=== PATIENT | male | born 1955 | race Caucasian/White ===

== ENCOUNTER → 2016-10-31 | Outpatient (CLI) | payer BC ==
[~2016-10-31] MED LIST: GABA-113 PO; MULT-506 PO; PRLSR20 PO
[2016-10-31 13:18] LABS: BASO % 0.7 %; BASO ABS # 0.04 K/uL (0-0.2); COMPLETE YES; EOS % 6.9 %; HEMATOCRIT 39.3 % (42-52); IG% 0.2 %; LYMPH % 25.9 %; LYMPH ABS # 1.54 K/uL (1.2-3.4); MEAN CELL VOLUME 94.9 fL (80-100); MEAN CORPUSCULAR HEMOGLOBIN 30.9 pg (25-34); MEAN CORPUSCULAR HGB CONC 32.6 g/dl (32-36); MEAN PLATELET VOLUME 11.6 fL (7.4-10.4); MONO % 8.7 %; NEUT % 57.6 %; PLATELET COUNT 210 K/uL (130-400); RED BLOOD COUNT 4.14 M/uL (4.7-6.1); WHITE BLOOD COUNT 5.95 K/uL (4.8-10.8)
[2016-10-31 13:25] LABS: ALT/SGPT 28 U/L (12-78); BLOOD UREA NITROGEN 17 mg/dl (7-18); CARBON DIOXIDE 30 mmol/L (21-32); CHLORIDE 105 mmol/L (98-107); CHOLESTEROL 194 mg/dl (0-200); GLUCOSE 99 mg/dl (70-99); POTASSIUM 4.4 mmol/L (3.5-5.1); SODIUM 141 mmol/L (136-145); TRIGLYCERIDES 92 mg/dl (0-150); VERY LOW DENSITY LIPOPROT CALC 18 mg/dl
[2016-10-31 13:28] LABS: ALB/GLOB RATIO 1.1 (0.9-2); ALKALINE PHOSPHATASE 52 U/L (45-117); AST/SGOT 29 U/L (15-37); HDL CHOLESTEROL 48 mg/dl; LDL CHOLESTEROL CALCULATED 128 mg/dl
[2016-10-31 13:41] LABS: ESTIMATED AVERAGE GLUCOSE 105 mg/dl; HA1C FLAG Normal (Normal)
[2016-10-31 13:42] LABS: CALCIUM 9.7 mg/dl (8.5-10.1)
== END | disposition home or self-care (01) ==
LOC: C.LABBFT 07:31
PROVIDERS: ATTEND Internal Medicine
DX: D64.9 Anemia, unspecified (principal); R74.0 Nonspecific elevation of levels of transaminase and lactic acid dehydrogenase [LDH]; R73.9 Hyperglycemia, unspecified

== ENCOUNTER → 2017-11-17 | Outpatient (CLI) | payer BC ==
[2017-11-17 13:20] LABS: BASO % 0.3 %; BASO ABS # 0.02 K/uL (0-0.2); EOS % 5.1 %; EOS ABS # 0.29 K/uL (0-0.5); HEMATOCRIT 37.2 % (42-52); HEMOGLOBIN 12.4 g/dL (14.0-18.0); IG# 0.02 K/uL (0.00-0.02); LYMPH % 24.7 %; LYMPH ABS # 1.42 K/uL (1.2-3.4); MEAN CELL VOLUME 93.5 fL (80-100); MEAN CORPUSCULAR HEMOGLOBIN 31.2 pg (25-34); MEAN CORPUSCULAR HGB CONC 33.3 g/dl (32-36); MEAN PLATELET VOLUME 10.6 fL (7.4-10.4); MONO % 9.1 %; MONO ABS # 0.52 K/uL (0.11-0.59); NEUT % 60.5 %; NEUT ABS # 3.47 K/uL (1.4-6.5); PLATELET COUNT 221 K/uL (130-400); RED CELL DISTRIBUTION WIDTH CV 13.2 % (11.5-14.5); RED CELL DISTRIBUTION WIDTH SD 45.1 fL (36.4-46.3); WHITE BLOOD COUNT 5.74 K/uL (4.8-10.8)
[2017-11-17 15:22] LABS: ALBUMIN 3.6 gm/dl (3.4-5.0); ALKALINE PHOSPHATASE 49 U/L (45-117); ALT/SGPT 26 U/L (12-78); AST/SGOT 32 U/L (15-37); BLOOD UREA NITROGEN 18 mg/dl (7-18); CALCIUM 9.3 mg/dl (8.5-10.1); CARBON DIOXIDE 30 mmol/L (21-32); CHOLESTEROL 206 mg/dl (0-200); CREATININE 1.29 mg/dl (0.60-1.40); GLUCOSE 96 mg/dl (70-99); LDL CHOLESTEROL CALCULATED 135 mg/dl; POTASSIUM 4.2 mmol/L (3.5-5.1); SODIUM 139 mmol/L (136-145); TOTAL PROTEIN 7.6 gm/dl (6.4-8.2)
[2017-11-18 05:51] LABS: HEMOGLOBIN A1C 5.4 % (4.5-5.6)
== END | disposition home or self-care (01) ==
LOC: C.LABBFT 07:39
PROVIDERS: ATTEND Physician Assistant Medical
DX: D64.9 Anemia, unspecified (principal); R73.9 Hyperglycemia, unspecified; Z12.5 Encounter for screening for malignant neoplasm of prostate; R74.0 Nonspecific elevation of levels of transaminase and lactic acid dehydrogenase [LDH]

== ENCOUNTER 2025-06-11 11:11 | Inpatient (IN) ==
--- NOTE | 2025-06-11 11:31 | Emergency Department Note ---
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 The patient states he did have a fall in March but he was feeling better after that fall and presents emerged ferment today because when he was sitting up in his chair he felt a pop in his anterior chest wall. He said pain over his sternum ever since that time. The patient denies having any fevers. The patient denies having any coughing. He states the pain does worsen when he takes a deep breath. The patient has not noticed any swelling in his left leg. ROS: See above HPI for pertinent positives & negatives. A total of 10 systems reviewed and were otherwise negative. PAST MEDICAL HISTORY: See Below PAST SURGICAL HISTORY: See Below FAMILY HISTORY: See Below SOCIAL HISTORY: See Below HOME MEDICATIONS: See Below ALLERGIES: See Below VITALS: See Below PHYSICAL EXAMINATION: GENERAL: The patient is awake and alert. He does appear to uncomfortable. EYES: The conjunctivae are clear. The pupils are round and reactive. EARS, NOSE, MOUTH AND THROAT: The nose is without any evidence of any deformity. NECK: The neck is nontender and supple. RESPIRATORY: Normal respiratory effort is noted there is no evidence of wheezing rhonchi or rales CARDIOVASCULAR: Regular rate and rhythm noted there no murmurs rubs or gallops normal S1 normal S2. GASTROINTESTINAL: The abdomen is soft. Abdomen is nontender. MUSCULOSKELETAL/EXTREMITIES: Right lower extremity amputation noted. There is tenderness over the anterior chest wall over the sternum. There is no crepitus. SKIN: There is no obvious evidence of any rash. There are no petechiae, pallor or cyanosis noted. NEUROLOGIC: Patient is awake alert and oriented x3 MEDICAL DECISION MAKING: The patient is a 70-year-old male who presented to the emergency department for chest pain. The patient had reproducible chest pain that occurred when he was sitting up out of his chair. This occurred a few days ago. His pain was significant. He also had recently been diagnosed with compression fractures in his thoracic spine. The patient was found to be hypoxic. He was placed on supplemental oxygen. He was treated with IV fluids. I discussed the patient's laboratory and radiographic studies with him. He was also treated with IV pain medication. The patient was found to have multiple areas of lytic lesions in his axial and skeletal bones which could be consistent with a metastatic process. He was also found to be anemic with hypercalcemia. This could also represent multiple myeloma. SPEP was ordered but is a send out from our facility. I discussed the patient's condition with him. He was feeling much better after treatment with IV pain medication but given his vital signs I do feel that he would be a better candidate for inpatient management. For this reason I discussed his condition with the on-call [facility] hospitalist. They have agreed to evaluate the patient in the emergency department for further management and disposition. Triage Nursing notes reviewed. Prior medical records reviewed Vital Signs: reviewed and remarkable for tachycardia and hypoxia. Differential diagnosis: Cardiac ischemia, aortic dissection, pulmonary embolism, pneumothorax, pneumonia, pericarditis, myocarditis, esophageal rupture, GERD, cholecystitis, pancreatitis, musculoskeletal, as well as other pathologies. ER treatment provided: See below Diagnostics interpreted by me: ECG: EKG was obtained in the emergency department. My interpretation is sinus tachycardia at 115 bpm. There is no ectopy. There is no acute ST segment abnormalities noted. This was compared to a tracing from December 01, 2000. No specific changes were noted. Cardiac Monitoring: An order was placed for continuous cardiac monitoring. The monitor shows a rate of 117 bpm with sinus tachycardia. Laboratory studies: As stated above and show below. Imaging studies: See below. Radiographic imaging was reviewed by myself Consultation(s): I discussed this case with Dr. Amaral who is on-call for the [facility]. 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 Dysrhythmia Hyperglycemia Male erectile disorder of organic origin Paresthesias Sensorineural hearing loss (SNHL) of left ear with unrestricted hearing of right ear History of colon polyps Health maintenance examination Leukopenia Castrejon's esophagus Gastroesophageal reflux disease Hyperlipidemia Left knee DJD Stump neuralgia Medical History Anemia History of osteosarcoma RLE; 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 Beliefs That Will Affect Care: None marital status: Current Living Situation: Spouse current occupational status: retired current occupation: [employer] Feels Safe at Home: Yes Safety Concerns: Feels Safe At This Time Childhood Exposure to Second-Hand Smoke: No Diet: regular caffeine: Yes Dental Care, Regularly: Yes Physical Activity Frequency: Daily Seatbelt Use: always Sunscreen Use: Yes Assistive Devices: Crutches, Glasses and Prosthesis Allergies Allergies Allergy/AdvReac Type Severity Reaction Status Date / Time No Known Drug Allergies Allergy Verified 05/12/25 13:39 Home Meds Home Medications Medication Instructions Recorded Confirmed amitriptyline 10 mg tablet 10 mg PO DAILY 06/11/25 06/11/25 amitriptyline 25 mg tablet 25 mg PO HS Stump pain 06/11/25 06/11/25 Previous Rx's Medication Instructions Recorded miscellaneous medical supply #1 ea 03/12/24 atorvastatin 40 mg tablet 40 mg PO HS #90 tabs 07/05/24 pantoprazole 40 mg tablet,delayed 40 mg PO QAM #90 tabs 08/24/24 release duloxetine 30 mg capsule,delayed 30 mg PO DAILY #30 caps 04/01/25 release pregabalin 150 mg capsule (Lyrica) 150 mg PO TID #90 caps 05/13/25 diclofenac sodium 75 mg 75 mg PO BID #60 tabs 06/08/25 tablet,delayed release tramadol 50 mg tablet 50 mg PO Q8H PRN pain #30 tabs 06/08/25 Results & Data (ED) Vital Signs Vital Signs - 24 hr 06/11/25 11:13 06/11/25 11:23 06/11/25 11:23 Temperature 37.0 C Temperature Source Temporal Artery Scan Pulse Rate 111 H 103 H Respiratory Rate 18 Respiratory Effort / Characteristics Non-Labored Respiratory Depth Normal Respiratory Pattern Regular Pulse Oximetry 96 88 L 96 Oxygen Delivery Method Room Air Room Air Room Air Sepsis Recent Fever Within 48 Hours No Sepsis New/Unexplained Change in Mental Status No Sepsis Action Taken by Nursing No Action Required Oxygen Flow Rate - Titration 2 Pulse Oximetry Post Tiitration 96 06/11/25 11:59 Temperature Temperature Source Pulse Rate 111 H Respiratory Rate Respiratory Effort / Characteristics Respiratory Depth Respiratory Pattern Pulse Oximetry Oxygen Delivery Method Sepsis Recent Fever Within 48 Hours Sepsis New/Unexplained Change in Mental Status Sepsis Action Taken by Nursing Oxygen Flow Rate - Titration Pulse Oximetry Post Tiitration Home Medications Current Medication List: was personally reviewed by me Laboratory Data Attestation: I reviewed the patient's lab results. 06/12/25 05:31 06/12/25 05:31 Lab Results 06/11/25 06/11/25 Range/Units 11:30 11:57 WBC 4.50 L (4.8-10.8) K/ul RBC 2.98 L (4.70-6.10) M/uL Hgb 9.6 L (14.0-18.0) g/dL POC Hgb 9.9 L (14.0-18.0) g/dl Hct 29.0 L (42.0-52.0) % POC Hct 29 L (42-52) % MCV 97.3 (80.0-100.0) fL MCH 32.2 (25.0-34.0) pg MCHC 33.1 (32.0-36.0) g/dL RDW Std Deviation 51.1 H (36.4-46.3) fL RDW Coeff of Flo 14.5 (11.5-14.5) % Plt Count 253 (130-400) K/uL MPV 10.1 (9.4-12.4) fL Immature Gran % (Auto) 1.1 % Neut % (Auto) 57.3 % Lymph % (Auto) 26.9 % Blanco % (Auto) 11.6 % Eos % (Auto) 2.4 % Baso % (Auto) 0.7 % Neut # (Auto) 2.58 (1.40-6.50) K/uL Lymph # (Auto) 1.21 (1.20-3.40) K/uL Blanco # (Auto) 0.52 (0.11-0.59) K/uL Eos # (Auto) 0.11 (0.00-0.50) K/uL Baso # (Auto) 0.03 (0.00-0.20) K/uL Immature Gran # (Auto) 0.05 (0.01-0.20) K/uL POC Sodium 144 (135-144) mmol/L Sodium 137 (136-145) mmol/L POC Potassium 3.9 (3.3-5.0) mmol/L Potassium 3.6 (3.5-5.1) mmol/L POC Chloride 100 L (101-112) mmol/L Chloride 100 (98-107) mmol/L Carbon Dioxide 31 (21-32) mmol/L POC Total CO2 28 (24-31) mmol/L Anion Gap 6 (3-11) POC Anion Gap 20.0 (16-25) mmol/L POC BUN 31 H (7-18) mg/dl BUN 29 H (6-23) mg/dl Creatinine 1.25 (0.6-1.4) mg/dl POC Creatinine 1.3 (0.6-1.3) mg/dl Est Cr Clr Drug Dosing Not Reportable eGFR 62.72 BUN/Creatinine Ratio 23.2 H (10-20) Glucose 131 H (70-99(Fasting)) mg/dl POC Glucose (other) 120 H (70-99) mg/dl Calcium 11.3 H (8.6-10.3) mg/dl POC Ioniz Calcium Marianela 1.46 H (1.12-1.32) mmol/l Total Bilirubin 0.4 (0.2-1.0) mg/dl AST 27 (13-39) U/L ALT 19 (7-52) U/L Alkaline Phosphatase 97 (34-104) U/L Troponin I High Sens 11.3 (0-20) pg/ml Total Protein 10.7 H (6.0-8.3) gm/dl Albumin 3.8 (3.4-5.0) gm/dl Globulin 6.9 H (2.5-4.0) gm/dl Albumin/Globulin Ratio 0.6 L (0.9-2) Lipase 21 (11-82) U/L Administered Medications Acetaminophen (Acetaminophen 325 Mg Tab) 650 mg PO QID PARK Stop: 07/11/25 16:59 Last Admin: 06/11/25 22:08 Dose: 650 mg Documented By: alt Admin: 06/11/25 16:37 Dose: 650 mg Documented By: CA Atorvastatin Calcium (Atorvastatin 40 Mg Tab) 40 mg PO HS PARK Stop: 07/11/25 20:59 Last Admin: 06/11/25 22:05 Dose: 40 mg Documented By: alt Diclofenac Sodium (Diclofenac Sodium 75 Mg Tabcr) 75 mg PO BID PARK Stop: 07/11/25 20:59 Last Admin: 06/11/25 22:04 Dose: 75 mg Documented By: alt Hydromorphone HCl (Hydromorphone Inj 0.5 Mg/0.5 Ml Syr) 0.5 mg IV Q3H PRN PRN Reason: Pain Stop: 06/25/25 12:52 Last Admin: 06/12/25 03:16 Dose: 0.5 mg Documented By: alt Admin: 06/11/25 22:09 Dose: 0.5 mg Documented By: alt Admin: 06/11/25 16:37 Dose: 0.5 mg Documented By: CA Pregabalin (Pregabalin 150 Mg Cap) 150 mg PO TID PARK Stop: 07/11/25 13:59 Last Admin: 06/11/25 22:08 Dose: 150 mg Documented By: alt Admin: 06/11/25 16:37 Dose: 150 mg Documented By: CA Tramadol HCl (Tramadol Hcl 50 Mg Tablet) 50 mg PO Q8H PRN PRN Reason: pain Stop: 07/11/25 13:48 Last Admin: 06/11/25 23:06 Dose: 50 mg Documented By: alt Discontinued Medications Hydromorphone HCl (Hydromorphone Inj 0.5 Mg/0.5 Ml Syr) 0.5 mg IV Q15M PRN PRN Reason: Pain Stop: 06/25/25 12:52 Last Admin: 06/11/25 12:57 Dose: 0.5 mg Documented By: FERNANDO Sodium Chloride (Nss) 500 mls @ 999 mls/hr IV .Q31M ONE Stop: 06/11/25 13:43 Last Infusion: 06/11/25 14:57 Dose: Infused Documented By: Admin: 06/11/25 13:48 Dose: 999 mls/hr Documented By: FERNANDO Ioversol (Optiray 320 125ml) 119 ml IV ONCE ONE Stop: 06/11/25 12:25 Last Admin: 06/11/25 12:24 Dose: 119 ml Documented By: DEVIN Miscellaneous (Patient's Height &/Or Weight Needed) 1 each N/A Q2H STA Stop: 06/11/25 15:01 Last Admin: 06/11/25 16:37 Dose: 1 each Documented By: CISCO Morphine Sulfate (Morphine Sulfate 4 Mg/Ml 1 Ml Carp\Vial) 4 mg IV NOW STA Stop: 06/11/25 11:24 Last Admin: 06/11/25 11:35 Dose: 4 mg Documented By: EDWARD Ondansetron HCl (Ondansetron Inj 2 Mg/Ml 2 Ml Vial) 4 mg IV NOW STA Stop: 06/11/25 11:24 Last Admin: 06/11/25 11:35 Dose: 4 mg Documented By: EDWARD Imaging Data Attestation: I personally reviewed and interpreted this imaging study as follows: My Impression: 1 view chest x-ray was obtained in the emergency department. My interpretation is no free air or definite infiltrate, elevation of left hemidiaphragm was noted, final report below. Radiologist's Impression: Chest CTA 06/11/25 11:23 Clinical history: Chest pain and difficulty breathing Technique: Axial computed tomography images were obtained of the chest after the administration of intravenous contrast according to the CT angiogram protocol No prior CT is available for comparison Findings: There is no definite sign of pulmonary embolism. There is mild subsegmental atelectasis in both lower lobes. There is mild lingular atelectasis also. The lungs otherwise appear clear without infiltrate or mass. There is no pleural effusion or pneumothorax. There is no sign of pulmonary fibrosis or other diffuse interstitial process. No endobronchial lesion is seen There is no mediastinal, hilar, or axillary adenopathy. The thoracic aorta appears unremarkable with no sign of aneurysm or dissection. There is no pericardial effusion. There is a right chest wall port with its tip in the SVC There are T8 and T11 compression fractures, likely old but of indeterminate age. There are multiple lytic osseous lesions, likely due to metastatic disease. There is a mildly displaced fracture of the right anterior seventh rib that may be acute. There is a mildly displaced fracture of the upper body of the sternum, likely acute. Impression: 1. No definite sign of pulmonary embolism 2. Multiple lytic osseous lesions, likely due to metastatic disease. 3. Mild bilateral lung base atelectasis. 4. Fracture of the right anterior seventh rib that may be acute 5. Age-indeterminate fractures of the T8 and T11 vertebral bodies 6. Mildly displaced sternal fracture, likely acute ACT 112: Positive. There are findings on this exam that require communication between the performing entity and the patient following Patient Test Result Information Act ([place] ACT 112) guidelines. Electronically signed by Corona Madden 06-11-2025 12:57 PM Chest X-Ray 06/11/25 11:26 Clinical History: Chest pain Technique: A frontal view of the chest was obtained Findings: There are no definite focal pulmonary infiltrates. The heart size is within normal limits. No pleural effusion or pneumothorax is seen. There is suspected mild pulmonary vascular congestion No fracture is noted. There is a right subclavian central line with its tip in the SVC Impression: Mild pulmonary vascular congestion Electronically signed by Corona Madden 06-11-2025 12:05 PM Abdomen/Pelvis CT 06/11/25 12:01 Technique: Axial computed tomography images were obtained of the abdomen and pelvis after the administration of intravenous contrast. No prior CT is available for comparison. Findings: The liver is overall of normal size, attenuation, and contour with no sign of cirrhosis or significant fatty infiltration. No liver mass lesion is seen. The portal vein is patent. The gallbladder appears unremarkable. No bile duct dilatation is noted. The spleen is of normal size. No focal splenic lesion is evident. The pancreas appears normal with no sign of acute or chronic pancreatitis and no mass lesion noted. The pancreatic duct is of normal caliber. The adrenal glands appear unremarkable. No definite renal or proximal ureteral calculi are seen on this contrast-enhanced study. There is no hydronephrosis or perinephric stranding. No renal mass lesion is identified. The abdominal aorta is of normal caliber. No abdominal adenopathy is seen. The stomach appears normal. There is no sign of small bowel obstruction. There is mild sigmoid diverticulosis without evidence of diverticulitis. No free intraperitoneal fluid or air is identified. No distal ureteral or bladder calculi are seen. There is mild prominence of the bladder wall. No definite bladder mass lesion is evident. The iliac arteries are of normal caliber. No pelvic adenopathy is noted. There is a small right inguinal hernia containing fat There appear to be multiple small lytic osseous lesions. There are L1 and L2 compression fractures of indeterminate age Impression: 1. Mild diverticulosis without evidence of diverticulitis 2. Mild prominence of the wall of the urinary bladder. This appearance could be due to incomplete distention, though infectious cystitis or other pathology cannot be excluded. Correlation with urinalysis may be useful 3. Small right inguinal hernia containing only fat 4. Multiple small lytic osseous lesions, concerning for metastatic disease 5. L1 and L2 compression fractures of indeterminate age Electronically signed by Corona Madden 06-11-2025 13:03 PM Discharge Plan Visit Data Chief Complaint: Chest Pain Stated Complaint: CHEST PAIN, DIFFICULTY BREATHING, 3 FRACTURED VERT ED Provider: Addie Bhatti Discharge Problem: Sternal fracture, Anemia, Closed rib fracture, Compression fracture of thoracic vertebra, Hypoxia, Hypercalcemia, Compression fx, lumbar spine Patient Disposition: Admitted As Inpatient Condition: Fair Discharge Instructions Interventions: ED Discharge Assessment Last Done: 06/11/25 14:48
[2025-06-11] MEDS: MoRPHine SULFATE 4 MG/ML 1 ML CARP\\VIAL IV STA (11:35)
[2025-06-11] MEDS: ONDANSETRON INJ 2 MG/ML 2 ML VIAL IV STA (11:35)
[2025-06-11 12:02] LABS: Hematocrit (blood only) 29.0 % (42.0-52.0); Hemoglobin 9.6 g/dL (14.0-18.0); Immature Granulocytes # (auto) 0.05 K/uL (0.01-0.20); Immature Granulocytes % (auto) 1.1 %; Mean Corpuscular Hemoglobin 32.2 pg (25.0-34.0); Mean Corpuscular Volume 97.3 fL (80.0-100.0); Platelet Count 253 K/uL (130-400); RDW Standard Deviation 51.1 fL (36.4-46.3); Red Blood Count 2.98 M/uL (4.70-6.10); White Blood Count 4.50 K/ul (4.8-10.8)
--- NOTE | 2025-06-11 12:05 | XRay Report ---
Clinical History: Chest pain Technique: A frontal view of the chest was obtained Findings: There are no definite focal pulmonary infiltrates. The heart size is within normal limits. No pleural effusion or pneumothorax is seen. There is suspected mild pulmonary vascular congestion No fracture is noted. There is a right subclavian central line with its tip in the SVC Impression: Mild pulmonary vascular congestion Electronically signed by Corona Madden 06-11-2025 12:05 PM
[2025-06-11 12:19] LABS: Alanine Aminotransferase 19 U/L (7-52); Albumin Globulin Ratio 0.6 (0.9-2); Albumin Level 3.8 gm/dl (3.4-5.0); Alkaline Phosphatase 97 U/L (34-104); Anion Gap 6 (3-11); Bilirubin,Total 0.4 mg/dl (0.2-1.0); Blood Urea Nitrogen 29 mg/dl (6-23); Calcium 11.3 mg/dl (8.6-10.3); Carbon Dioxide 31 mmol/L (21-32); Chloride 100 mmol/L (98-107); Globulin 6.9 gm/dl (2.5-4.0); Glucose 131 mg/dl (70-99(Fasting)); Lipase 21 U/L (11-82); Potassium 3.6 mmol/L (3.5-5.1); Sodium 137 mmol/L (136-145); Total Protein 10.7 gm/dl (6.0-8.3)
[2025-06-11] MEDS: OPTIRAY 320 125ml IV ONE (12:24)
[2025-06-11] MEDS: HYDROmorphone INJ 0.5 MG/0.5 ML SYR IV PRN ×2 (12:57→16:37)
--- NOTE | 2025-06-11 12:58 | CT Scan Report ---
Clinical history: Chest pain and difficulty breathing Technique: Axial computed tomography images were obtained of the chest after the administration of intravenous contrast according to the CT angiogram protocol No prior CT is available for comparison Findings: There is no definite sign of pulmonary embolism. There is mild subsegmental atelectasis in both lower lobes. There is mild lingular atelectasis also. The lungs otherwise appear clear without infiltrate or mass. There is no pleural effusion or pneumothorax. There is no sign of pulmonary fibrosis or other diffuse interstitial process. No endobronchial lesion is seen There is no mediastinal, hilar, or axillary adenopathy. The thoracic aorta appears unremarkable with no sign of aneurysm or dissection. There is no pericardial effusion. There is a right chest wall port with its tip in the SVC There are T8 and T11 compression fractures, likely old but of indeterminate age. There are multiple lytic osseous lesions, likely due to metastatic disease. There is a mildly displaced fracture of the right anterior seventh rib that may be acute. There is a mildly displaced fracture of the upper body of the sternum, likely acute. Impression: 1. No definite sign of pulmonary embolism 2. Multiple lytic osseous lesions, likely due to metastatic disease. 3. Mild bilateral lung base atelectasis. 4. Fracture of the right anterior seventh rib that may be acute 5. Age-indeterminate fractures of the T8 and T11 vertebral bodies 6. Mildly displaced sternal fracture, likely acute ACT 112: Positive. There are findings on this exam that require communication between the performing entity and the patient following Patient Test Result Information Act ([place] ACT 112) guidelines. Electronically signed by Corona Madden 06-11-2025 12:57 PM
--- NOTE | 2025-06-11 13:04 | CT Scan Report ---
Technique: Axial computed tomography images were obtained of the abdomen and pelvis after the administration of intravenous contrast. No prior CT is available for comparison. Findings: The liver is overall of normal size, attenuation, and contour with no sign of cirrhosis or significant fatty infiltration. No liver mass lesion is seen. The portal vein is patent. The gallbladder appears unremarkable. No bile duct dilatation is noted. The spleen is of normal size. No focal splenic lesion is evident. The pancreas appears normal with no sign of acute or chronic pancreatitis and no mass lesion noted. The pancreatic duct is of normal caliber. The adrenal glands appear unremarkable. No definite renal or proximal ureteral calculi are seen on this contrast-enhanced study. There is no hydronephrosis or perinephric stranding. No renal mass lesion is identified. The abdominal aorta is of normal caliber. No abdominal adenopathy is seen. The stomach appears normal. There is no sign of small bowel obstruction. There is mild sigmoid diverticulosis without evidence of diverticulitis. No free intraperitoneal fluid or air is identified. No distal ureteral or bladder calculi are seen. There is mild prominence of the bladder wall. No definite bladder mass lesion is evident. The iliac arteries are of normal caliber. No pelvic adenopathy is noted. There is a small right inguinal hernia containing fat There appear to be multiple small lytic osseous lesions. There are L1 and L2 compression fractures of indeterminate age Impression: 1. Mild diverticulosis without evidence of diverticulitis 2. Mild prominence of the wall of the urinary bladder. This appearance could be due to incomplete distention, though infectious cystitis or other pathology cannot be excluded. Correlation with urinalysis may be useful 3. Small right inguinal hernia containing only fat 4. Multiple small lytic osseous lesions, concerning for metastatic disease 5. L1 and L2 compression fractures of indeterminate age Electronically signed by Corona Madden 06-11-2025 13:03 PM
--- NOTE | 2025-06-11 13:45 | History & Physical Report ---
Date of Service June 11, 2025 Assessment & Plan (1) Compression fx, lumbar spine: (2) Hypercalcemia: (3) Prediabetes: Plan Patient admitted for lytic bone lesions on axial skeleton which is the culprit of the his compression fracture Ordered pain medicine. consulted hematology. Order bone marrow biopsy. will monitor cbc Paresthesias: continue pregabalin Barretts esophagus Resumed omeprazole. History of Present Illness Chief Complaint: chest pain Primary Care Provider: Tip Almodovar MD 70 yo male with PMH of osteosarcoma presnets to the [facility] fro chest pain. Patient has been having back pain since March of this past year. This has affected his ambulation, where he needs to use a cane. He reports having chest pain today. At the end of March, patient sustaining a fall. And since then he has been having chest pain. Patient also reports intermittent back pain that has been worked up by his PCP. He was planning on getting an MRI of his back prior to this visit. Patient reports his chest pain worsened and required to come to the ED. CHest pain is worse with palpation Allergies Allergy/AdvReac Type Severity Reaction Status Date / Time No Known Drug Allergies Allergy Verified 05/12/25 13:39 Home Medications Medication Instructions Recorded Confirmed Type miscellaneous medical supply #1 ea 03/12/24 05/12/25 Rx atorvastatin 40 mg tablet 40 mg PO HS #90 tabs 07/05/24 06/11/25 Rx pantoprazole 40 mg tablet,delayed 40 mg PO QAM #90 tabs 08/24/24 06/11/25 Rx release duloxetine 30 mg capsule,delayed 30 mg PO DAILY #30 caps 04/01/25 06/11/25 Rx release pregabalin 150 mg capsule (Lyrica) 150 mg PO TID #90 caps 05/13/25 06/11/25 Rx diclofenac sodium 75 mg 75 mg PO BID #60 tabs 06/08/25 06/11/25 Rx tablet,delayed release tramadol 50 mg tablet 50 mg PO Q8H PRN pain #30 tabs 06/08/25 06/11/25 Rx amitriptyline 10 mg tablet 10 mg PO DAILY 06/11/25 06/11/25 History amitriptyline 25 mg tablet 25 mg PO HS Stump pain 06/11/25 06/11/25 History Past Med/Surg History Problem List (Updated 06/11/25 @ 13:13 by Tesfaye Bhatti DO) Compression fx, lumbar spine (Acute) Hypercalcemia (Acute) Hypoxia (Acute) Compression fracture of thoracic vertebra (Acute) Closed rib fracture (Acute) Anemia (Acute) Sternal fracture (Acute) Compression fracture of T11 vertebra Compression fracture of L2 Compression fracture of L1 lumbar vertebra Prediabetes Anemia 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 Dysrhythmia Hyperglycemia Male erectile disorder of organic origin Paresthesias Sensorineural hearing loss (SNHL) of left ear with unrestricted hearing of right ear History of colon polyps Health maintenance examination Leukopenia Castrejon's esophagus Gastroesophageal reflux disease Hyperlipidemia Left knee DJD Stump neuralgia Medical History Anemia History of osteosarcoma RLE; 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 Sister Alzheimer disease Other Bleeding disorder No family history of adverse response to anesthesia Denies family history of Ovarian cancer Prostate cancer Myocardial infarction Breast cancer Colorectal cancer Social History Smoking Status: Never smoker Tobacco Type: Smokeless Tobacco (Dip or Chew) Second Hand Exposure: Yes (as a child); Do You Dip or Chew Tobacco: No; Hx Alcohol Use: Yes Alcohol type: beer Hx Substance Use: No Preferred Language: Czech Communication Ability: Effective Visual Impairment: No Limitations Hearing Ability: Normal Cellular Biologist Required: No Beliefs That Will Affect Care: None marital status: Current Living Situation: Spouse current occupational status: retired current occupation: [employer] Feels Safe at Home: Yes Safety Concerns: Feels Safe At This Time Childhood Exposure to Second-Hand Smoke: No Diet: regular caffeine: Yes Dental Care, Regularly: Yes Physical Activity Frequency: Daily Seatbelt Use: always Sunscreen Use: Yes Assistive Devices: Crutches, Glasses and Prosthesis Review of Systems Constitutional: no fever Eyes: no blind spots Ear, Nose, Mouth, Throat: no ear pain Respiratory: no cough Cardiovascular: + chest pain Gastrointestinal: no abdominal pain Genitourinary: no dysuria Musculoskeletal: + back pain Integumentary: no lesions Neurologic: + gait abnormality Psychiatric: no behavioral changes Endocrine: no fatigue Hematologic / Lymphatic: no easy bleeding Allergy / Immunological: no GI upset with certain foods Physical Exam Constitutional: WD/WN, vitals as above Eyes: PERRL, conjunctivae normal, anicteric sclerae ENMT: external ear and nose normal, oropharynx normal Neck: trachea midline, no thyromegaly Respiratory: normal respiratory effort, lungs clear to auscultation Cardiovascular: RRR, no murmur, no edema Gastrointestinal (Abdomen): normal bowel sounds, soft, nontender, no hepatosplenomegaly Neurologic: PERRL, EOMI, accommodation nl, no face palsy, no dysarthria Psychiatric: A+Ox3, euthymic affect Lymphatic: no cervical or axillary lymphadenopathy Results & Data Results & Data Vital Signs (Past 12 Hours) Vital Signs Temp Pulse Resp Pulse Ox O2 Del Method 06/11/25 11:59 111 H 06/11/25 11:23 103 H 96 Room Air 06/11/25 11:23 88 L Room Air 06/11/25 11:13 37.0 C 111 H 18 96 Room Air PG Care Time/CCT Total # of Minutes Spent Total Time Spent with Patient: Total time spent is greater than 50% in coordination of care (as documented) at patient's floor/unit and/or counseling patient: Coding Level of Care Code 96424 INT INP/OBS CARE 3/75MIN Diagnoses Compression fx, lumbar spine S32.000A Hypercalcemia E83.52 Prediabetes R73.03
[2025-06-11] MEDS: SODIUM CHLORIDE 0.9% 500 ML IV ONE (13:48)
[2025-06-11 14:17] LABS: Appearance Urine Clear (Clear); Glucose Urine UA Negative (Negative)
--- NOTE | 2025-06-11 16:10 | Oncology Consultation ---
Date of Consultation June 11, 2025 Assessment & Plan (1) Compression fx, lumbar spine: (2) Hypercalcemia: (3) Anemia: Plan Labs (anemia, hypercalcemia,elevated total protein level) and imaging with lytic lesions suggestive of multiple myeloma. -Obtain SPEP with JOSE, serum free light chains, quantitative Ig levels, beta 2 microglobulin -Bone marrow biopsy with aspiration -outpatient PET on discharge History of Present Illness Reason for Consultation: Lytic bone lesions Attending Physician: Abran Amaral History of Present Illness 70 year old with remote history of right lower extremity osteosarcoma who presented with chest pain. CTA chest revealed sternal fracture and multiple lytic lesions. CT A/P revealed L1/2 compression fractures, mild bladder prominence and multiple lytic lesions. Labs showed anemia with H/H of 9.6/29, hypercalcemia with ca level of 11.3 and elevated total protein level of 10.7. Allergies Allergy/AdvReac Type Severity Reaction Status Date / Time No Known Drug Allergies Allergy Verified 05/12/25 13:39 Home Medications Medication Instructions Recorded Confirmed Type miscellaneous medical supply #1 ea 03/12/24 05/12/25 Rx atorvastatin 40 mg tablet 40 mg PO HS #90 tabs 07/05/24 06/11/25 Rx pantoprazole 40 mg tablet,delayed 40 mg PO QAM #90 tabs 08/24/24 06/11/25 Rx release duloxetine 30 mg capsule,delayed 30 mg PO DAILY #30 caps 04/01/25 06/11/25 Rx release pregabalin 150 mg capsule (Lyrica) 150 mg PO TID #90 caps 05/13/25 06/11/25 Rx diclofenac sodium 75 mg 75 mg PO BID #60 tabs 06/08/25 06/11/25 Rx tablet,delayed release tramadol 50 mg tablet 50 mg PO Q8H PRN pain #30 tabs 06/08/25 06/11/25 Rx amitriptyline 10 mg tablet 10 mg PO DAILY 06/11/25 06/11/25 History amitriptyline 25 mg tablet 25 mg PO HS Stump pain 06/11/25 06/11/25 History Patient History Medical History Anemia History of osteosarcoma RLE; 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 Sister Alzheimer disease Other Bleeding disorder No family history of adverse response to anesthesia Denies family history of Ovarian cancer Prostate cancer Myocardial infarction Breast cancer Colorectal cancer Social History Smoking Status: Never smoker Tobacco Type: Smokeless Tobacco (Dip or Chew) Second Hand Exposure: Yes (as a child); Do You Dip or Chew Tobacco: No; Hx Alcohol Use: Yes Alcohol type: beer Hx Substance Use: No Preferred Language: Palauan Communication Ability: Effective Visual Impairment: No Limitations Hearing Ability: Normal Stock Mover Required: No Beliefs That Will Affect Care: None marital status: Current Living Situation: Spouse current occupational status: retired current occupation: [employer] Feels Safe at Home: Yes Safety Concerns: Feels Safe At This Time Childhood Exposure to Second-Hand Smoke: No Diet: regular caffeine: Yes Dental Care, Regularly: Yes Physical Activity Frequency: Daily Seatbelt Use: always Sunscreen Use: Yes Assistive Devices: Crutches, Glasses and Prosthesis Results & Data Vital Signs (Past 12 Hours) Vital Signs Temp Pulse Pulse Resp BP Pulse Ox O2 Del Method 06/11/25 14:56 36.4 C L 99 H 20 132/79 99 Nasal Cannula 06/11/25 11:59 111 H 06/11/25 11:23 103 H 96 Room Air 06/11/25 11:23 88 L Room Air 06/11/25 11:13 37.0 C 111 H 18 96 Room Air O2 Flow Rate 06/11/25 14:56 2 06/11/25 11:59 06/11/25 11:23 06/11/25 11:23 06/11/25 11:13 (3) Anemia Anemia type: unspecified type Qualified Code(s): D64.9 - Anemia, unspecified
[2025-06-11] MEDS: ACETAMINOPHEN 325 MG TAB PO SCH (16:37)
[2025-06-11] MEDS: Patient's HEIGHT &/or WEIGHT Needed STA (16:37)
[2025-06-11] MEDS: PREGABALIN 150 MG CAP PO SCH (16:37)
[2025-06-11 17:50] LABS: Iron 83 mcg/dl (35-175); Total Iron Binding Cap Calc 295 mcg/dl (250-450); Transferrin 211 mg/dl (200-360); Transferrin (FE) Percent Satur 28 % (20-50)
[2025-06-11 18:12] LABS: Ferritin 330.5 ng/ml (8-388)
[2025-06-11 18:16] LABS: Folate (Folic Acid),Ser orPlas 15.2 ng/ml (>5.38)
[2025-06-11 18:17] LABS: Vitamin B12 428.0 pg/ml (180-914)
[2025-06-11 18:50] LABS: Immunoglobulin A 13.5 mg/dl (70-400); Immunoglobulin G 4303.1 mg/dl (635-1741); Immunoglobulin M < 20.0 mg/dl (45-281)
[2025-06-11] MEDS ORDERED: AMITRIPTYLINE HCL 25 MG TAB PO SCH (21:00)
[2025-06-11] MEDS: DICLOFENAC SODIUM 75 MG TABCR PO SCH (22:04)
[2025-06-11] MEDS: ATORVASTATIN 40 MG TAB PO SCH (22:05)
[2025-06-12 06:11] LABS: Hematocrit (blood only) 26.1 % (42.0-52.0); Hemoglobin 8.4 g/dL (14.0-18.0); Mean Corpuscular Hemoglobin 31.7 pg (25.0-34.0); Mean Corpuscular Volume 98.5 fL (80.0-100.0); Platelet Count 217 K/uL (130-400); RDW Standard Deviation 51.5 fL (36.4-46.3); Red Blood Count 2.65 M/uL (4.70-6.10); White Blood Count 4.58 K/ul (4.8-10.8)
[2025-06-12 06:40] LABS: Anion Gap 5.0 (3-11); Blood Urea Nitrogen 22.0 mg/dl (6-23); Calcium 10.4 mg/dl (8.6-10.3); Carbon Dioxide 32.0 mmol/L (21-32); Chloride 99.0 mmol/L (98-107); Creatinine Clr Calc Pharmacy 63.7 ml/min; Glucose 95.0 mg/dl (70-99(Fasting)); Potassium 3.9 mmol/L (3.5-5.1); Sodium 136.0 mmol/L (136-145)
[2025-06-12] MEDS ORDERED: AMITRIPTYLINE HCL 10 MG TAB PO SCH (09:00)
--- NOTE | 2025-06-12 23:05 | Hospitalist Progress Note ---
Date of Service June 12, 2025 Assessment & Plan (1) Compression fx, lumbar spine: (2) Hypercalcemia: (3) Prediabetes: Plan Patient admitted for lytic bone lesions on axial skeleton which is the culprit of the his compression fracture Pain appears controlled. consulted hematology. Ordered bone marrow biopsy. Awaiting further workup. Doubt patient will require MRI. Asked patient to bring in his prosthetic so he can ambulate will monitor cbc Paresthesias: continue pregabalin Barretts esophagus Resumed omeprazole. Admission and Anticipated Discharge Date Admission Date: June 11, 2025 Subjective Patient reports no new symptoms. Physical Exam Constitutional: WD/WN, vitals as above Eyes: PERRL, conjunctivae normal, anicteric sclerae ENMT: external ear and nose normal, oropharynx normal Neck: trachea midline, no thyromegaly Respiratory: normal respiratory effort, lungs clear to auscultation Cardiovascular: RRR, no murmur, no edema Gastrointestinal (Abdomen): normal bowel sounds, soft, nontender, no hepatosplenomegaly Neurologic: PERRL, EOMI, accommodation nl, no face palsy, no dysarthria Psychiatric: A+Ox3, euthymic affect Lymphatic: no cervical or axillary lymphadenopathy Results & Data Results & Data Vital Signs (Past 12 Hours) Vital Signs Temp Pulse Pulse Resp BP Pulse Ox Pulse Ox 06/12/25 22:55 36.7 C 81 18 123/77 97 06/12/25 19:31 36.8 C 85 18 122/76 99 06/12/25 16:07 87 06/12/25 15:49 36.5 C 82 19 113/73 97 06/12/25 13:45 96 06/12/25 11:59 36.8 C 92 H 20 113/71 96 O2 Del Method O2 Del Method O2 Flow Rate O2 Flow Rate 06/12/25 22:55 Room Air 06/12/25 19:31 Room Air 06/12/25 16:07 06/12/25 15:49 Nasal Cannula 2 06/12/25 13:45 Nasal Cannula 2 06/12/25 11:59 Nasal Cannula 2 PG Care Time/CCT Total # of Minutes Spent Total Time Spent with Patient: Total time spent is greater than 50% in coordination of care (as documented) at patient's floor/unit and/or counseling patient: Coding Level of Care Code 58655 SUB INP/OBS CARE 35MIN Diagnoses Compression fx, lumbar spine S32.000A Hypercalcemia E83.52 Prediabetes R73.03
[2025-06-13 06:29] LABS: Hematocrit (blood only) 27.5 % (42.0-52.0); Hemoglobin 9.1 g/dL (14.0-18.0); Mean Corpuscular Hemoglobin 32.5 pg (25.0-34.0); Mean Corpuscular Volume 98.2 fL (80.0-100.0); Platelet Count 214 K/uL (130-400); RDW Standard Deviation 50.7 fL (36.4-46.3); Red Blood Count 2.80 M/uL (4.70-6.10); White Blood Count 4.68 K/ul (4.8-10.8)
[2025-06-13 07:03] LABS: Anion Gap 6.0 (3-11); Blood Urea Nitrogen 19.0 mg/dl (6-23); Calcium 10.5 mg/dl (8.6-10.3); Carbon Dioxide 32.0 mmol/L (21-32); Chloride 98.0 mmol/L (98-107); Creatinine Clr Calc Pharmacy 55.2 ml/min; Glucose 90.0 mg/dl (70-99(Fasting)); Potassium 4.0 mmol/L (3.5-5.1); Sodium 136.0 mmol/L (136-145)
[2025-06-13] MEDS: ENOXAPARIN INJ 40 MG/0.4 ML SYR SQ SCH (09:18)
[2025-06-13] MEDS: POLYETHYLENE (MIRALAX) 17 GM PACK PO PRN (15:01)
--- NOTE | 2025-06-13 22:56 | Hospitalist Progress Note ---
Date of Service June 13, 2025 Assessment & Plan (1) Compression fx, lumbar spine: (2) Hypercalcemia: (3) Prediabetes: Plan Patient admitted for lytic bone lesions on axial skeleton which is the culprit of the his compression fracture Pain appears controlled. consulted hematology. Ordered bone marrow biopsy, due to scheduling, IR unable to complete biopsy today. Plan for biopsy tomorrow AM. Will consult anesthesia to help with patient's anxiety. Paresthesias: continue pregabalin Barretts esophagus Resumed omeprazole. Admission and Anticipated Discharge Date Admission Date: June 11, 2025 Subjective Patient reports no new symptoms. Physical Exam Constitutional: WD/WN, vitals as above Eyes: PERRL, conjunctivae normal, anicteric sclerae ENMT: external ear and nose normal, oropharynx normal Neck: trachea midline, no thyromegaly Respiratory: normal respiratory effort, lungs clear to auscultation Cardiovascular: RRR, no murmur, no edema Gastrointestinal (Abdomen): normal bowel sounds, soft, nontender, no hepatosplenomegaly Neurologic: PERRL, EOMI, accommodation nl, no face palsy, no dysarthria Psychiatric: A+Ox3, euthymic affect Lymphatic: no cervical or axillary lymphadenopathy Results & Data Results & Data Vital Signs (Past 12 Hours) Vital Signs Temp Pulse Pulse Resp BP Pulse Ox O2 Del Method 06/13/25 20:00 37.1 C 100 H 19 146/73 H 90 Room Air 06/13/25 14:57 36.6 C 92 H 18 113/73 94 Room Air 06/13/25 14:20 94 H 06/13/25 11:26 36.7 C 93 H 18 135/81 95 Room Air PG Care Time/CCT Total # of Minutes Spent Total Time Spent with Patient: Total time spent is greater than 50% in coordination of care (as documented) at patient's floor/unit and/or counseling patient: Coding Level of Care Code 54889 SUB INP/OBS CARE 2/35MIN Diagnoses Compression fx, lumbar spine S32.000A Hypercalcemia E83.52 Prediabetes R73.03
[2025-06-14 06:24] LABS: Hematocrit (blood only) 26.8 % (42.0-52.0); Hemoglobin 8.9 g/dL (14.0-18.0); Immature Granulocytes # (auto) 0.06 K/uL (0.01-0.20); Immature Granulocytes % (auto) 1.4 %; Mean Corpuscular Hemoglobin 32.2 pg (25.0-34.0); Mean Corpuscular Volume 97.1 fL (80.0-100.0); Platelet Count 189 K/uL (130-400); RDW Standard Deviation 49.8 fL (36.4-46.3); Red Blood Count 2.76 M/uL (4.70-6.10); White Blood Count 4.35 K/ul (4.8-10.8)
[2025-06-14 06:53] LABS: Anion Gap 5.0 (3-11); Blood Urea Nitrogen 25.0 mg/dl (6-23); Calcium 10.5 mg/dl (8.6-10.3); Carbon Dioxide 30.0 mmol/L (21-32); Chloride 101.0 mmol/L (98-107); Creatinine Clr Calc Pharmacy 51.6 ml/min; Glucose 99.0 mg/dl (70-99(Fasting)); Potassium 3.8 mmol/L (3.5-5.1); Sodium 136.0 mmol/L (136-145)
[2025-06-14 07:00] LABS: Bone Marrow Smear SLHOLD; Polychromasia 1+
[2025-06-14] MEDS ORDERED: PROPOFOL IV EMULSION 10 MG/ML 20 ML VIAL IV ONE (08:13)
[2025-06-14] MEDS ORDERED: ATROPINE SULFATE 0.1 MG/ML 10ML SYR IV PRN (09:34)
[2025-06-14] MEDS ORDERED: ONDANSETRON INJ 2 MG/ML 2 ML VIAL IV PRN (09:34)
--- NOTE | 2025-06-14 09:34 | Anesthesiology Consultation ---
Date of Service June 14, 2025 Assessment & Plan Chart Review Chart Review: Acceptable Risk for Surgery and Patient NOT seen in Pre Admission Testing Consults Requested none History Surgery Operation Date: 06/14/25 09:[address] Scan Bone Marrow Biopsy with Anesthesia Sedation - FLORINDA No Height/Weight Height: 5 ft 9 in Weight: 81.4 kg Allergies Allergy/AdvReac Type Severity Reaction Status Date / Time No Known Drug Allergies Allergy Verified 05/12/25 13:39 Medications Home Medications Medication Instructions Recorded Confirmed Last Taken miscellaneous medical supply #1 ea 03/12/24 05/12/25 Unknown atorvastatin 40 mg tablet 40 mg PO HS #90 tabs 07/05/24 06/11/25 Unknown pantoprazole 40 mg tablet,delayed 40 mg PO QAM #90 tabs 08/24/24 06/11/25 Unknown release duloxetine 30 mg capsule,delayed 30 mg PO DAILY #30 caps 04/01/25 06/11/25 Unknown release pregabalin 150 mg capsule (Lyrica) 150 mg PO TID #90 caps 05/13/25 06/11/25 Unknown diclofenac sodium 75 mg 75 mg PO BID #60 tabs 06/08/25 06/11/25 Unknown tablet,delayed release tramadol 50 mg tablet 50 mg PO Q8H PRN pain #30 tabs 06/08/25 06/11/25 Unknown amitriptyline 10 mg tablet 10 mg PO DAILY 06/11/25 06/11/25 Unknown amitriptyline 25 mg tablet 25 mg PO HS Stump pain 06/11/25 06/11/25 Unknown Active Medications Generic Name Dose Route Start Last Admin Trade Name Nacho PRN Reason Stop Dose Admin Acetaminophen 650 mg 06/11/25 17:00 06/14/25 08:10 Acetaminophen 325 Mg Tab PO 07/11/25 16:59 650 mg QID PARK Administration Atorvastatin Calcium 40 mg 06/11/25 21:00 06/13/25 20:19 Atorvastatin 40 Mg Tab PO 07/11/25 20:59 40 mg HS PARK Administration Diclofenac Sodium 75 mg 06/11/25 21:00 06/14/25 08:10 Diclofenac Sodium 75 Mg Tabcr PO 07/11/25 20:59 75 mg BID PARK Administration Duloxetine HCl 30 mg 06/12/25 09:00 06/14/25 08:10 Duloxetine Hcl 30 Mg Cap PO 07/12/25 08:59 30 mg DAILY PARK Administration Enoxaparin Sodium 40 mg 06/13/25 09:00 06/14/25 08:11 Enoxaparin Inj 40 Mg/0.4 Ml Syr SQ 07/13/25 08:59 40 mg QAM PARK Administration Hydromorphone HCl 0.5 mg 06/11/25 16:09 06/13/25 22:58 Hydromorphone Inj 0.5 Mg/0.5 Ml Syr IV 06/25/25 12:52 0.5 mg Q3H PRN Administration Pain Pantoprazole Sodium 40 mg 06/12/25 09:00 06/14/25 08:10 Pantoprazole 40 Mg Tab PO 07/12/25 08:59 40 mg QAM PARK Administration Polyethylene Glycol 17 gm 06/12/25 22:04 06/13/25 15:01 Polyethylene (Miralax) 17 Gm Pack PO 07/12/25 22:03 17 gm DAILY PRN Administration Constipation Pregabalin 150 mg 06/11/25 14:00 06/14/25 08:10 Pregabalin 150 Mg Cap PO 07/11/25 13:59 150 mg TID PARK Administration Tramadol HCl 50 mg 06/11/25 13:49 06/13/25 09:59 Tramadol Hcl 50 Mg Tablet PO 07/11/25 13:48 50 mg Q8H PRN Administration pain NPO Date Last Intake of Fluids: 06/13/25 Time Last Intake of Fluids: 21:30 Last Intake of Fluids Comment: sip of water 0810 w/meds Date Last Intake of Solids: 06/13/25 Time Last Intake of Solids: 18:00 Past Medical History Medical History Anemia History of osteosarcoma RLE; Rt AKA + chemo (20+ years ago) >uses prosthetic Neuropathy Past Family History Family History Mother Coronary heart disease Anemia Father Sepsis of sepsis after TKA Brother No problems noted. Sister Alzheimer disease Other Bleeding disorder No family history of adverse response to anesthesia Denies family history of Ovarian cancer Prostate cancer Myocardial infarction Breast cancer Colorectal cancer Past Surgical History Surgical History History of tooth extraction History of esophagogastroduodenoscopy (EGD) History of vascular access device History of colonoscopy History of above-knee amputation Social History Smoking Status: Never smoker Do You Dip or Chew Tobacco: No Hx Alcohol Use: Yes Alcohol type: beer alcohol intake frequency: holidays/special occasions only Hx Substance Use: No substance use type: does not use Physical Exam Vital Signs Last Vital Signs Temp 36.8 C 06/14/25 09:23 Pulse 92 H 06/14/25 09:23 Resp 18 06/14/25 09:23 BP 154/77 H 06/14/25 09:23 Pulse Ox 95 06/14/25 09:23 O2 Del Method Room Air 06/14/25 09:23 O2 Flow Rate 1 06/14/25 07:45 Testing Laboratory Results 06/14/25 06:06 06/14/25 06:06 Urine Color Yellow 06/11/25 14:06 Urine Appearance Clear (Clear) 06/11/25 14:06 Urine pH 7.0 (4.5-7.5) 06/11/25 14:06 Ur Specific [place] > 1.045 (1.000-1.030) H 06/11/25 14:06 Urine Protein Negative (Negative) 06/11/25 14:06 Urine Glucose (UA) Negative (Negative) 06/11/25 14:06 Urine Ketones Negative (Negative) 06/11/25 14:06 Urine Nitrite Negative (Negative) 06/11/25 14:06 Ur Leukocyte Esterase Negative (Negative) 06/11/25 14:06
[2025-06-14] MEDS: LACTATED RINGER'S 1,000 ML IV SCH (09:35)
--- NOTE | 2025-06-14 10:38 | Anesthesiology Progress Note ---
Date of Service June 14, 2025 Anesthesia Post Procedure Vital Signs Vital Signs: Temp Pulse Pulse Resp BP BP Pulse Ox 06/14/25 10:34 94 H 16 129/81 94 06/14/25 09:23 36.8 C 92 H 18 154/77 H 95 06/14/25 07:45 06/14/25 07:34 36.8 C 91 H 18 128/79 94 06/14/25 05:04 36.6 C 60 17 120/75 97 06/13/25 22:56 36.9 C 85 18 147/84 H 91 06/13/25 20:00 37.1 C 100 H 19 146/73 H 90 06/13/25 14:57 36.6 C 92 H 18 113/73 94 06/13/25 14:20 94 H 06/13/25 11:26 36.7 C 93 H 18 135/81 95 O2 Del Method O2 Flow Rate 06/14/25 10:34 Room Air 06/14/25 09:23 Room Air 06/14/25 07:45 Nasal Cannula 1 06/14/25 07:34 Room Air 06/14/25 05:04 Room Air 06/13/25 22:56 Room Air 06/13/25 20:00 Room Air 06/13/25 14:57 Room Air 06/13/25 14:20 06/13/25 11:26 Room Air Pain Intensity Chest: Pain Intensity: 4 Transfer of Care Handoff Completed per policy Notes Mental Status: alert / awake / arousable Patient Amnestic to Procedure: Yes Nausea / Vomiting: adequately controlled Pain: adequately controlled Airway Patency, RR, SpO2: stable & adequate BP & HR: stable & adequate Hydration State: stable & adequate Anesthetic Complications: no major complications apparent and Pt Satisfied with anesthetic care
--- NOTE | 2025-06-14 11:58 | Discharge Summary ---
Discharge Summary Date of Service June 14, 2025 Principal Dx & Hospital Course #1 = Principal Diagnosis (1) Compression fx, lumbar spine: (2) Hypercalcemia: (3) Prediabetes: Plan *Possible Multiple myeloma *Fracture of right anterior seventh rib *Fracture of body of sternum Noted on ct chest Patient admitted for lytic bone lesions on axial skeleton which is the culprit of the his compression fracture Pain appears controlled. consulted hematology. Ordered bone marrow biopsy, due to scheduling, IR unable to complete biopsy today. Plan for biopsy tomorrow AM. Will consult anesthesia to help with patient's anxiety. Paresthesias: continue pregabalin Barretts esophagus Resumed omeprazole. Admission HPI Per Admitting Provider 70 yo male with PMH of osteosarcoma presnets to the hosptial fro chest pain. Patient has been having back pain since March of this past year. This has affected his ambulation, where he needs to use a cane. He reports having chest pain today. At the end of March, patient sustaining a fall. And since then he has been having chest pain. Patient also reports intermittent back pain that has been wor ked up by his PCP. He was planning on getting an MRI of his back prior to this visit. Patient reports his chest pain worsened and required to come to the ED. CHest pain is worse with palpation Discharge Exam Constitutional WD/WN, vitals as above Eyes PERRL, conjunctivae normal, anicteric sclerae ENMT external ear and nose normal, oropharynx normal Neck trachea midline, no thyromegaly Respiratory normal respiratory effort, lungs clear to auscultation Cardiovascular RRR, no murmur, no edema Gastrointestinal (Abdomen) normal bowel sounds, soft, nontender, no hepatosplenomegaly Neurologic PERRL, EOMI, accommodation nl, no face palsy, no dysarthria Psychiatric A+Ox3, euthymic affect Lymphatic no cervical or axillary lymphadenopathy Discharge Plan Discharge Items Patient Disposition: Home - Self-Care Reason For Visit: MULTIPLE LYIC LESIONS Condition on Discharge: Fair Follow-up/Referrals: Tip Almodovar MD [Primary Care Provider] - Diet: Regular Addtl Attending Provider Instructions: Dr. Pantoja's office will followup with you. Pending Studies at Discharge: No Stand-Alone Forms: My [employer], Smoking Cessation Medications and DC Order Prescriptions: Continued (DME) miscellaneous medical supply Misc See Dose Instructions .ROUTE .MEDSUPPLY Qty: 1 0RF Dose Instruction: As directed Rx Instructions: Right above the knee prosthesis with microprocessor knee and ankle atorvastatin 40 mg tablet 40 mg PO HS Qty: 90 3RF pantoprazole 40 mg tablet,delayed release (DR/EC) 40 mg PO QAM Qty: 90 3RF duloxetine 30 mg capsule,delayed release(DR/EC) 30 mg PO DAILY Qty: 30 5RF pregabalin [Lyrica] 150 mg capsule 150 mg PO TID Qty: 90 5RF diclofenac sodium 75 mg tablet,delayed release (DR/EC) 75 mg PO BID Qty: 60 0RF tramadol 50 mg tablet 50 mg PO Q8H PRN (Reason: pain) Qty: 30 0RF Discontinued amitriptyline 25 mg tablet 25 mg PO HS Rx Instructions: 25 mg tablet +10 mg tablet for a total of 35 mg each night orally at bedtime; amitriptyline 10 mg tablet 10 mg PO DAILY Rx Instructions: Take 10 mg tablet +25 mg tablet for a total of 35 mg each night orally daily; Admission Data Admit Date/Time: 06/11/25 13:45 Attending Provider: Abran Amaral Admit Provider: Abran Amaral Primary Care Provider: Tip Almodovar Other Providers: Juanito Johnson; Laura Lind; Robert Phoenix; Hussein Sibley; Nadia Dixon; Amor Mzea; Magdi Antonio; Carla Pantoja; OleksandrP,Muriel Attending Hospital Stay Data Consultations 06/11/25 13:14 ED Decision to Admit Stat 06/11/25 13:44 Consult Hematology Routine Procedures Performed Operation Date: 06/14/25 09:45 <No data on this case meets the specified criteria> Diagnostic Imagining Performed 06/11/25 11:23 CT angio chest PE protocol Stat 06/11/25 12:01 CT abd pelvis IV con only Stat 06/14/25 09:45 IR bone marrow bx & asp Routine Pending Results Patient Have Any Pending Studies at Discharge: No Discharge Instructions Given to Patient (Per Discharging Provider) Dr. Pantoja's office will followup with you. Coding Diagnoses Compression fx, lumbar spine S32.000A Hypercalcemia E83.52 Prediabetes R73.03
[2025-06-14 12:31] VITALS: BP 143/83; PULSE 95; RESP 18; TEMP 98.2; O2SAT 93
--- NOTE | 2025-06-14 14:37 | CT Scan Report ---
CT-guided bone marrow biopsy INDICATION: Lytic bone lesions PROCEDURE: Procedure and risks were explained. Informed consent was obtained. A final timeout was com pleted. The patient was placed in a right decubitus position on the CT exam table. The left gluteal r egion was prepped and draped in sterile fashion. 1% lidocaine was utilized for skin anesthesia. The p atient received monitored anesthesia care during the procedure. Utilizing CT guidance, an 11-gauge bone biopsy needle was advanced into the left iliac bone. Multiple aspirates and one bone core was obtained and given to the lab. The needle was removed and Band-Aid a pplied. The patient tolerated the procedure well. Vital signs will be monitored on the floor. IMPRESSION: Bone marrow biopsy as above. Performed, dictated, and signed by Samm Sellers PA-C; to be co-signed by Dr. Elijah Romo. Electronically signed by: Elijah Romo M.D. 06/14/2025 2:57 PM
--- NOTE | 2025-06-15 06:18 | Electrocardiogram Report ---
Test Reason : Blood Pressure : */* mmHG Vent. Rate : 115 BPM Atrial Rate : 115 BPM P-R Int : 182 ms QRS Dur : 90 ms QT Int : 324 ms P-R-T Axes : 57 11 65 degrees QTcB Int : 448 ms Sinus tachycardia Possible Anterior infarct , age undetermined Abnormal ECG When compared with ECG of 01-Dec-2000 12:11, No significant change Confirmed by Demetrius Delatorre ([id number]) on 06/15/2025 6:18:32 AM Referred By: REFERRED SELF Confirmed By: Demetrius Delatorre
[2025-06-16 07:57] LABS: Albumin 4.3 g/dL (3.8-4.8); Beta-1-Globulin 0.4 g/dL (0.4-0.6); Gamma Globulin 3.8 g/dL (0.8-1.7); Total Protein 10.2 g/dL (6.1-8.1)
== END 2025-06-14 13:27 | disposition home or self-care (01) | DRG 841 ==
LOC: SUATTDRO → ED 11:11 → 4W 13:45